=== PATIENT | male | born 1955 | race Caucasian/White ===

== ENCOUNTER 2017-01-03 17:53 | Emergency (ER) | payer MEDICARE ==
[~2017-01-03 17:53] MED LIST: AMARYL4 PO; AMIT25 PO; ASA5GR PO; D100 PO; FORTAMET500 MG PO; LIPITOR80 MG PO; NEUR600 PO; PERCOCET1 TA4 PO; PLAVIX PO; PRAVACHOL80 MG PO; PRIN10 PO; TEG200 PO; TRADJENTA5 MG PO
== END 2017-01-03 20:39 | disposition left against medical advice (07) ==
LOC: ER 17:53
DX: Z53.21 Procedure and treatment not carried out due to patient leaving prior to being seen by health care provider (principal); Z79.899 Other long term (current) drug therapy
CPT/HCPCS: 73630-RT